=== PATIENT | female | born 1950 | race Caucasian/White ===

== ENCOUNTER 2019-12-21 16:51 | Emergency (ER) | payer OTHER ==
[~2019-12-21] VITALS: Ht 149.9 cm; Wt 86.6 kg
[2019-12-21 16:58] VITALS: BP 131/102
--- NOTE | 2019-12-21 17:19 | NUR ---
PT TO CHAIR A
--- NOTE | 2019-12-21 17:26 | NUR ---
C/O RASH S/P WEARING SURGICAL MASK X 1 WEEK. PT STATES SHE WAS WEARING A SURGICAL MASK AND THEN SWITCHED TO A CLOTH MASK DUE TO RASH. RASH APPARENT ONLY TO SKIN COVERED BY MASK. PT STATES THE RASH FEELS "PRICKLY". MINOR PAIN 3/10. SOME ITCHINESS. PT STATES SHE IS WASHING HER MASKS AND CHANGES MASKS DAILY. MED HX: DM, HTN
[2019-12-21] MEDS ORDERED: predniSONE 20 MG TAB PO ONE (17:45)
[2019-12-21] MEDS ORDERED: LORATADINE 10 MG TAB PO ONE (17:45)
--- NOTE | 2019-12-21 17:52 | NUR ---
CLARITIN AND PREDNISONE PO ADMINISTERED
--- NOTE | 2019-12-21 17:54 | NUR ---
PT STATES ALLERGY TO SUDAFED
[2019-12-21 17:59] VITALS: BP 131/102
--- NOTE | 2019-12-21 17:59 | NUR ---
Patient discharged with v/s stable. Written and verbal after care instructions given and explained. Patient alert, oriented and verbalized understanding of instructions. Ambulatory with steady gait. All questions addressed prior to discharge. ID band removed. Patient advised to follow up with PMD. Rx of TRIACINOLONE given. Patient educated on indication of medication including possible reaction and side effects. Opportunity to ask questions provided and answered.
== END 2019-12-21 17:59 | disposition home or self-care (01) ==
LOC: MED 16:51
DX: L25.9 Unspecified contact dermatitis, unspecified cause (principal); Z88.8 Allergy status to other drugs, medicaments and biological substances
CPT/HCPCS: 99283; J7512; 99282